=== PATIENT | female | born 1980 | race Caucasian/White ===

== ENCOUNTER 2022-01-14 05:57 | Outpatient (CLI) | payer OTHER, SELFPAY ==
--- NOTE | 2022-01-15 13:14 | STRESSREP ---
Stress Test Report Date: 01/14/2022 Procedure: Exercise tolerance test/imaging study Indications: Chest pain Consent: Per the patient Procedure: The patient exercised on a Sean protocol for 10 minutes and 16 seconds achieving a peak heart rate of 155 bpm (85% predicted maximal heart rate) with a peak blood pressure 160/72 mmHg and a peak MET capacity of 13.4 METs. The baseline ECG demonstrated normal sinus rhythm. The peak exercise ECG demonstrated no significant ischemic changes. EKG during recovery revealed no significant ischemic changes [There were no cardiac dysrhythmias pretest, during exercise, or recovery]. The functional capacity was considered normal for age. There was [no complaint of chest discomfort during exercise or recovery]. The examination was discontinued secondary to dyspnea. Impression: 1. Technically adequate (percent predicted maximal heart rate greater than 85%) exercise tolerance test 2. Stress test is negative for exercise-induced EKG changes of ischemia 3. The test test is negative for exercise-induced chest pain 4. Functional capacity is normal for age 5. Nuclear images pending Myocardial perfusion imaging study: Technique: The patient was injected with 11.3 mCi of technetium 99m Cardiolite and subsequently rest SPECT Cardiolite nuclear imaging was obtained in the horizontal long, vertical long, and short axis views. The patient exercised on a Sean protocol. Please see above for details. The patient was injected with 32.8 mCi of technetium 99m Cardiolite and subsequently stress SPECT Cardiolite nuclear imaging was obtained in the horizontal long, vertical long, and short axis views. A gated Cardiolite study at peak stress was obtained. Interpretation: Rest and stress SPECT Cardiolite nuclear imaging status post realignment, normalization, and attenuation correction, demonstrates no evidence of significant ischemia or infarction. The gated Cardiolite study demonstrates no significant regional wall motion abnormalities. The reported LVEF is greater than 70%. Impression: 1. There is no evidence of significant ischemia or infarction. 2. The gated Cardiolite study reports an LVEF of greater than 70%. This note was generated with [employer] software. It may contain incorrect words, spelling, and punctuation that were not noted in checking the note before signing.
== END 2022-01-14 23:59 | disposition home or self-care (01) ==
DX: R07.9 Chest pain, unspecified (principal)
CPT/HCPCS: 78452; 93017; A9500; A4216

== ENCOUNTER 2023-08-31 17:30 | Emergency (ER) | payer OTHER, SELFPAY ==
[2023-08-31 17:30] VITALS: BP 158/85; PULSE 78; RESP 14; TEMP 36.4; O2SAT 100; BMI 22.8
--- NOTE | 2023-08-31 17:34 | EKG12_ITS ---
Test Reason : CP Blood Pressure : / mmHG Vent. Rate : 076 BPM Atrial Rate : 076 BPM P-R Int : 164 ms QRS Dur : 074 ms QT Int : 378 ms P-R-T Axes : 076 053 033 degrees QTc Int : 425 ms Normal sinus rhythm Possible Left atrial enlargement Borderline ECG Confirmed by LALO DENNISON, STEPHANIE ([id number]), editor dictionary GALLO GALAN ([id number]) on 09/07/2023 11:49:12 AM Referred By: MARIO Confirmed By:STEPHANIE MAY MD
[2023-08-31 17:51] LABS: Absolute Lymphocyte Count 2.31 X10^3/uL (0.83-4.51); Absolute Neutrophil Count 4.1 X10^3/uL (2.0-7.7); Basophil# 0.02 X10^3/uL; Basophil% 0.3 % (0-1); Eosinophil# 0.06 X10^3/uL; Eosinophils% 0.9 % (0-5); Hematocrit 43.2 % (37-47); Hemoglobin 14.5 g/dL (12.0-15.0); Lymphocyte # 2.31 X10^3/ul (0.83-4.51); Lymphocyte % 33.6 % (19-41); Mean Corp Hgb Conc 33.6 g/dL (32-36); Mean Corpuscular Hgb 29.8 pg (27.0-32.0); Mean Corpuscular Volume 88.7 fL (81-99); Mean Platelet Vol. 9.8 fl (6.2-12.0); Monocyte# 0.35 X10^3/uL; Monocyte% 5.1 % (0-10); NRBC Flagged by Analyzer 0 % (0-5); Neutrophil # 4.13 X10^3/uL (2.7-7.7); Platelet Count 323 K/mm3 (150-450); RBC Distribution Width CV 11.9 % (11.6-14.6); RBC Distribution Width SD 38.6 fl (35.1-43.9); Red Blood Count 4.87 M/mm3 (4.2-5.4); White Blood Count 6.9 K/mm3 (4.4-11.0)
--- NOTE | 2023-08-31 17:56 | RAD_ITS ---
STUDY: X-RAY CHEST REASON FOR EXAM: Female, 42 years old. Chest pain TECHNIQUE: Single AP portable view of the chest. COMPARISON: None. FINDINGS: There is right lower lung increased opacity with atelectasis or infiltrate. There is no demonstrated pleural abnormality. Normal size heart. Normal mediastinum and gómez. Normal visualized pulmonary arteries. Normal visualized aortic arch and descending thoracic aorta. Normal visualized thoracic spine. Normal visualized ribs, clavicles, and shoulders. There is no demonstrated abnormality of the visualized soft tissue structures of the upper abdomen. RAD/Chest 1 View (Portable) IMPRESSION: Right lower lung atelectasis or infiltrate. Electronically Signed: Vlad Galvez MD at 18:50 EST ,
[2023-08-31 18:11] LABS: Anion Gap 2 (5-15); BUN 11 mg/dL (7-18); BUN/Creat Ratio 13.7 RATIO (10-20); Calcium,Total 9.4 mg/dL (8.5-10.1); Chloride 104 mmol/L (98-107); EST Glomerular Filtration Rate 84 mL/min (>60); Est Glom Filt Rate - Afr Amer 101 mL/min (>60); Glucose 107 mg/dL (74-106); Potassium 3.7 mmol/L (3.5-5.1); Sodium Level 136 mmol/L (136-145); Troponin-I HS (w/2H Reflex) 3 pg/mL (3.0-54.0)
[2023-08-31 18:29] VITALS: BP 132/62; PULSE 64; RESP 12; O2SAT 98
[2023-08-31 19:00] VITALS: BP 114/61; PULSE 56; RESP 12; O2SAT 99
[2023-08-31 19:45] LABS: Reflex Troponin-HS? (from REC) Y
[2023-08-31 20:12] LABS: Troponin-I HS 4 pg/mL (3.0-54.0)
--- NOTE | 2023-08-31 20:22 | ED.VIS.CHEST ---
HPI History of Present Illness Chief Complaint: Chest Pain Onset/Context/Timing Onset: Weeks Activity at onset: sudden Timing: Intermittent Quality: Positive for Pressure and Sharp Location: Substernal and - (Left neck and jaw) Worsened By: Nothing Relieved By: Nothing Associated Symptoms: Positive for Diaphoresis, Lightheadedness, Acid Reflux and Palpitations; Negative for Nausea, Vomiting, Dyspnea, Cough or Fever Narrative Narrative: Patient presents with chest pain that has been intermittent over the last 2 weeks. Patient states today she had pain that went into her neck and into her jaw. Patient states it began rather suddenly. Patient states she was sitting when this began. Patient describes it as a bubble sensation in her chest that then became sharp. Patient states it is over the substernal area. Patient states nothing makes it better and nothing makes it worse. Patient admits to some diaphoresis with the pain. Patient states she then felt shaky after she developed the pain. Patient also admits to some lightheadedness and palpitations. CVD Risk Factors: Negative for Hypertension, Diabetes, Hypercholesterolemia, Family History 1' </=55 or Smoking PE Risk Factors: Negative for Recent Travel/Surgery, Recent Immobilization, Prior DVT or PE or Cancer [facility] Medical History (Updated 08/31/23 @ 22:[address] Edin Salmon DO) Factor 5 Leiden mutation, heterozygous Allergy/AdvReac Type Severity Reaction Status Date / Time amoxicillin Allergy Mild Hives Verified 08/31/23 17:33 morphine Allergy Mild Hives Verified 08/31/23 17:33 Surgical History (Updated 08/31/23 @ 20:[address] Edin Salmon DO) History of hysterectomy Social History Smoking Status: Former smoker ROS ROS ED Constitutional Constitutional ED: Denies chills or fever(s) Eyes Eyes: Denies blurry vision or change in vision ENT ENT ED: Denies rhinorrhea or sore throat Cardiovascular Cardiovascular: Reports chest pain; Denies palpitations Respiratory/Chest Respiratory/Chest: Denies cough or dyspnea Gastrointestinal Gastrointestinal: Denies nausea or vomiting Genitourinary Genitourinary ED: Denies dysuria or hematuria Musculoskeletal Musculoskeletal: Reports back pain and neck pain Integumentary Denies abscess or rash Neurologic Neurologic: Denies headache(s) or weakness Allergic/Immunologic Allergic/Immunologic ED: Denies mouth swelling or urticaria EXAM Physical Exam Const Vital Signs: 08/31/23 17:30 08/31/23 17:34 08/31/23 18:29 Temperature 97.6 F L Temperature Source Temporal Pulse Rate 78 64 Respiratory Rate 14 12 Respiratory Effort Blood Pressure 158/85 H 132/62 H Blood Pressure Mean 109 85 Pulse Ox 100 98 Oxygen Delivery Method Room Air Room Air Room Air 08/31/23 18:29 08/31/23 19:00 08/31/23 21:00 Temperature Temperature Source Pulse Rate 56 L 55 L Respiratory Rate 12 12 Respiratory Effort Normal Blood Pressure 114/61 101/65 Blood Pressure Mean 78 77 Pulse Ox 99 99 Oxygen Delivery Method Room Air Room Air Positive well nourished and well developed General Appearance ED: well developed and NAD HEENT Reports moist mucous membranes normocephalic and atraumatic Neck supple and no JVD Chest Wall inspection of chest normal and palpation of chest normal Resp normal respiratory effort and clear to auscultation bilaterally Cardio regular rate and regular rhythm GI soft to palpation, non-tender and non-distended Extremity General Extremety ED: Negative for edema or tenderness General Extremity: Negative for edema Neuro oriented x3, CN's II-XII intact bilaterally and no sensory deficits noted Sensorium / Orientation: awake and alert Motor Exam: strength 5/5 throughout Psych mental status grossly normal Heart Score History: Slightly/Non-Suspicious ECG: Normal Age: </= 45 years Risk Factors: No Risk Factors Troponin: </= Normal Limit Score: 0 MDM MDM MDM Narrative Medical decision making narrative: Differential diagnosis includes cardiac dysrhythmia, cardiac ischemia, pneumonia, pneumothorax, pulmonary embolism, electrolyte abnormality, musculoskeletal pain, and anxiety. EKG will be obtained to assess for cardiac dysrhythmia and cardiac ischemia. Chest x-ray will be obtained to assess for pneumonia and pneumothorax. CBC will be obtained to assess for leukocytosis and anemia. Basic metabolic profile will be obtained to assess for electrolyte abnormality and renal function. High-sensitivity troponin will be obtained to assess for cardiac ischemia. 2-hour repeat high-sensitivity troponin will be obtained to assess for ongoing cardiac ischemia. PT with INR will be obtained to assess for coagulopathy. Lab Data Attestation: I reviewed the patient's lab results. Lab results narrative: CBC was reviewed and was within normal limits. Basic metabolic profile was reviewed and was within normal limits. Initial high-sensitivity troponin was reviewed and was normal at 3. 2-hour repeat high-sensitivity troponin was reviewed and was normal at 4. PT with INR were reviewed. Pro time was 20.7 and INR is 1.8. Labs: Laboratory Results - last 24 hr 08/31/23 08/31/23 17:40 19:52 WBC 6.9 RBC 4.87 Hgb 14.5 Hct 43.2 MCV 88.7 MCH 29.8 MCHC 33.6 RDW Std Deviation 38.6 RDW Coeff of Shakir 11.9 Plt Count 323 MPV 9.8 Immature Gran % (Auto) 0.100 Neut % (Auto) 60.0 Lymph % (Auto) 33.6 Lyon % (Auto) 5.1 Eos % (Auto) 0.9 Baso % (Auto) 0.3 Absolute Neuts (auto) 4.1 Absolute Lymphs (auto) 2.31 Nucleated RBC % 0 PT 20.7 H INR 1.8 Sodium 136 Potassium 3.7 Chloride 104 Carbon Dioxide 30.0 Anion Gap 2 L BUN 11 Creatinine 0.80 Estim Creat Clear Calc 90.90 Est GFR (MDRD) Af Amer 101 Est GFR (MDRD) Non-Af 84 BUN/Creatinine Ratio 13.7 Glucose 107 H Calcium 9.4 Troponin I High Sens 3 4 Radiography Chest X-Ray - ED: 1 View, Read by ED Physician, Read by Radiologist and No Acute Disease Diagnostic Testing: Clinical Impression(s) from Imaging Studies Chest X-Ray 08/31/23 17:56 IMPRESSION: Right lower lung atelectasis or infiltrate. Electronically Signed: Vlad Galvez MD at 18:50 EST , Portable 1 view chest x-ray was obtained. On my independent interpretation, lung iverson show right lower lung atelectasis. There is normal cardiac silhouette. Bony thorax is normal. There is no acute process noted. Radiologist also interpreted the x-ray and agrees. EKG Initial EKG: Attestation: I personally reviewed and interpreted this EKG as follows: Interpretation: Sinus Rhythm (76) and No Acute Injury Pattern Comments: EKG was obtained. On my independent interpretation, it showed a normal sinus rhythm with a rate of 76. MN interval, QRS interval, and QTc intervals were all normal. Parker was normal. There are no acute ST or T wave changes. Prior EKG tracings: available for review Prior: Unchanged (01/14/2022) Treatment and Re-Evaluation :: Patient was given aspirin here. Patient was advised of her findings. Patient has a HEART score of 0. Patient was advised that this is low risk for acute cardiac event. Patient was instructed to follow-up with her primary care physician in 5 to 7 days for further evaluation. Patient understood and was agreeable with the plan. All questions were answered. Discharge Plan Triage Chief Complaint: Chest Pain ED Provider: Edin Salmon Dx/Rx/DC Orders Clinical Impression: Chest pain Instructions: ED Chest Pain, Uncertain Cause Primary Care Provider: Care Physician,No Primary Referrals: Uma Malik PA [Non-Staff] - 5-7 Days Disposition Disposition: Home, Self Care
[2023-08-31 21:00] VITALS: BP 101/65; PULSE 55; RESP 12; O2SAT 99
[2023-08-31 21:17] LABS: International Normalized Ratio 1.8; Prothrombin Time (Protime)PT. 20.7 SECONDS (11.7-14.9)
[2023-08-31] MEDS: Aspirin 81 MG TAB.CHEW 324 MG PO (21:21)
[2023-08-31 22:00] VITALS: BP 106/51; PULSE 65; RESP 12; O2SAT 100
== END 2023-08-31 22:56 | disposition home or self-care (01) ==
PROVIDERS: Emergency Provider Emergency Medicine; Visit Provider Emergency Medicine
DX: R07.9 Chest pain, unspecified (principal); Z87.891 Personal history of nicotine dependence
CPT/HCPCS: 71045; 80048; 84484; 85025; 85610; 93005; 99284; A4216